=== PATIENT | female | born 1950 | race Caucasian/White ===

== ENCOUNTER 2018-03-25 09:10 | Emergency (ER) | payer MEDICARE, OTHER ==
[~2018-03-25] VITALS: Ht 154.9 cm; Wt 56.7 kg
[~2018-03-25 09:10] MED LIST: CYCLOBENZAPRINE10 MG ORAL; TYLENOL325 MG ORAL
[2018-03-25] MEDS ORDERED: IBUPROFEN600 MG ORAL (10:22)
[2018-03-25] MEDS ORDERED: NORCO 5-325 TA1 EACH ORAL (10:22)
[2018-03-25 10:30] VITALS: BP 126/78
--- NOTE | 2018-03-25 11:08 | Emergency Room Report ---
History of Present Illness General Chief Complaint: Lower Extremity Injury Source: Patient Present Illness HPI Patient had a mechanical fall yesterday. Patient states that she slipped fell forward and hit her wrists and her knee. She's complaining of wrist pain and knee pain. She is able to ambulate with a walker. She denies any chest pain shortness of breath. She was a little concerned because she has history of arthroscopic knee surgery on her right knee. She denies any tingling numbness.No other modifying factors. No other associated signs and symptoms. No other complaints were noted. Allergies: Coded Allergies: PENICILLINS (Unverified Allergy, Unknown, 12/20/15) Uncoded Allergies: PENICILLIN (Allergy, Unknown, 12/20/15) Patient History Past Medical History: other - Prior knee surgery PMH Narrative osteoporosis Pertinent Family History: none Social History: Denies: smoking, alcohol use, drug use Reviewed Nursing Documentation: PMH: Agreed; PSxH: Agreed Review of Systems All Other Systems: negative except mentioned in HPI Physical Exam Vital Signs Date Time Temp Pulse Resp B/P (MAP) Pulse Ox O2 Delivery O2 Flow Rate FiO2 03/25/18 09:19 97.9 62 20 125/66 99 Room Air 97.9 Sp02 EP Interpretation: reviewed, normal General Appearance: normal inspection, well appearing, no apparent distress, alert Head: atraumatic Eyes: bilateral eye normal inspection ENT: normal ENT inspection, hearing grossly normal, normal voice Neck: normal inspection, full range of motion, supple, no bony tend Respiratory: normal inspection, lungs clear, normal breath sounds, no respiratory distress, no retraction, no wheezing Cardiovascular #1: regular rate, rhythm, no edema Gastrointestinal: normal inspection, normal bowel sounds, non tender, soft, no guarding, no hernia Genitourinary: no CVA tenderness Musculoskeletal: normal inspection, back normal, normal range of motion, tender - Bilateral wrists, bilateral knee Neurologic: normal inspection, alert, responsive, speech normal Psychiatric: normal inspection, judgement/insight normal, mood/affect normal Skin: normal inspection, normal color, no rash Medical Decision Making Diagnostic Impression: Primary Impression: Strain of knee, bilateral Additional Impressions: Injury of lower extremity Qualified Codes: S89.91XA - Unspecified injury of right lower leg, initial encounter Strain of wrist, bilateral Wrist strain Qualified Codes: S66.919A - Strain of unspecified muscle, fascia and tendon at wrist and hand level, unspecified hand, initial encounter ER Course Patient presents emergency department today status post fall. Differential considerations include fracture since patient presents strain. Given patient's presentation felt that x-rays are indicated. X-rays were negative of the wrist and knee. I felt the patient to be discharged home. Patient was given prescription for pain medications. Patient is advised to follow up with primary doctor in 2-3 days and return the emergency room for any worsening symptoms and as needed. Other X-Ray Diagnostic Results Other X-Ray Diagnostic Results #1: X-Ray ordered: Right wrist x-ray # of Views/Limited Vs Complete: 3 View Indication: Pain EP Interpretation: Yes Interpretation: no dislocation, no soft tissue swelling, no fractures Impression: No acute disease Electronically Signed by: Electronically signed by Sharita De La Vega MD Other X-Ray Diagnostic Results #2: X-Ray ordered: Left wrist x-ray # of Views/Limited Vs Complete: 3 View Indication: Pain EP Interpretation: Yes Interpretation: no dislocation, no soft tissue swelling, no fractures Impression: No acute disease Electronically Signed by: Electronically signed by Sharita De La Vega MD Other X-Ray Diagnostic Results #3: X-Ray ordered: Left knee x-ray # of Views/Limited Vs Complete: 3 View Indication: Pain EP Interpretation: Yes Interpretation: no dislocation, no soft tissue swelling, no fractures Impression: No acute disease Electronically Signed by: Electronically signed by Sharita De La Vega MD Other X-Ray Diagnostic Results #4: X-Ray ordered: Right knee x-ray # of Views/Limited Vs Complete: 3 View Indication: Pain Interpretation: no dislocation, no soft tissue swelling, no fractures Impression: No acute disease Last Vital Signs Date Time Temp Pulse Resp B/P (MAP) Pulse Ox O2 Delivery O2 Flow Rate FiO2 03/25/18 09:19 97.9 62 20 125/66 99 Room Air 97.9 Status: improved Disposition: HOME, SELF-CARE Condition: Stable Scripts Hydrocodone Bit/Acetaminophen 5-325* (NORCO 5-325*) 1 Each Tablet 1 TAB ORAL Q4H PRN for For Pain, #10 TAB 0 Refills Prov: SHARITA DE LA VEGA M.D. 03/25/18 Ibuprofen* (MOTRIN*) 600 Mg Tablet 600 MG ORAL Q8H PRN for For Pain, #10 TAB 0 Refills Prov: SHARITA DE LA VEGA M.D. 03/25/18 Patient Instructions: Wrist Sprain, Knee Pain, [id number] SHARITA DE LA VEGA M.D. March 25, 2018 11:08
--- NOTE | 2018-03-25 13:36 | Diagnostic Imaging Report ---
Indication: Pain Knee pain/trauma 3 views of the right knee were obtained. Findings: No acute fracture, malalignment, or joint effusion are identified. Joint space is relatively well-maintained. Bones are slightly osteopenic. Impression: Negative for acute findings.
--- NOTE | 2018-03-25 13:40 | Diagnostic Imaging Report ---
Indication: Pain left wrist pain Findings: 3 views of the left wrist were obtained. No acute fractures, malalignment, erosions or periostitis are identified. Soft tissues are unremarkable. Impression: No acute findings.
--- NOTE | 2018-03-25 13:40 | Diagnostic Imaging Report ---
Indication: Pain 3 views of the left knee were obtained. Findings: No acute fracture, malalignment, or joint effusion are identified. Joint space is mildly narrowed in all 3 compartments. Impression: Negative for acute injury. Mild arthrosis
--- NOTE | 2018-03-25 13:41 | Diagnostic Imaging Report ---
Indication: Pain Findings: 3 views of the right wrist were obtained. No acute fractures, malalignment, erosions or periostitis are identified. Soft tissues are unremarkable. Impression: No acute findings.
== END 2018-03-25 11:01 | disposition home or self-care (01) ==
LOC: EMR 09:29
DX: S86.812A Strain of other muscle(s) and tendon(s) at lower leg level, left leg, initial encounter (principal); S86.811A Strain of other muscle(s) and tendon(s) at lower leg level, right leg, initial encounter; S66.912A Strain of unspecified muscle, fascia and tendon at wrist and hand level, left hand, initial encounter; S66.911A Strain of unspecified muscle, fascia and tendon at wrist and hand level, right hand, initial encounter; W01.0XXA Fall on same level from slipping, tripping and stumbling without subsequent striking against object, initial encounter; Y92.9 Unspecified place or not applicable; Z88.0 Allergy status to penicillin
CPT/HCPCS: 99284

== ENCOUNTER 2018-12-14 20:27 | Emergency (ER) | payer MEDICARE ==
[~2018-12-14] VITALS: Ht 149.9 cm; Wt 59.9 kg
[~2018-12-14 20:27] MED LIST changes: +IBUPROFEN600 MG ORAL; +NORCO 5-325 TA1 EACH ORAL
[2018-12-14] MEDS ORDERED: XANAX0.25 MG ORAL (20:47)
[2018-12-14] MEDS ORDERED: ATORVASTATIN CA10 MG ORAL (20:47)
--- NOTE | 2018-12-14 21:00 | NUR ---
ED Nurse Note: pt walked into ED c/o anxiety, med refill for xanax, 0.25 mg bid, pt states she recently suffered from loss of mother, has been dealing with her , states it has been difficult to sleep and eat, heart palpitations and anxious. ERMD at the bedside, pt aA&ox4, gc=15, calm and cooperative, skin warm and dry, resp even and unlabored, -n/v/d, ambulates w/ steady gait, son at the bedside, will cont monitor.
[2018-12-14 21:05] VITALS: BP 150/79
[2018-12-14] MEDS ORDERED: XANAX0.5 MG ORAL (21:09)
--- NOTE | 2018-12-14 21:09 | Emergency Room Report ---
History of Present Illness General Chief Complaint: Medication Refill Source: Patient, Family Member Present Illness HPI Is a 68-year-old female with a history of anxiety. She presents with chief complaint of anxiety. This occur because of illness to her mom. Mom was in the [facility] and recently on November 27. Since then she been on Xanax. She said it helped. She ran out 2 days ago. Her doctor told her to go to the hospital since she can't be seen quickly. She denies any fever or chills. Said she has hard time sleeping. Fell anxious. Fell her heart beating fast and numbness to her body. No nausea no vomiting. No suicidal thoughts or homicidal thought. Allergies: Coded Allergies: PENICILLINS (Unverified Allergy, Unknown, 12/20/15) Uncoded Allergies: PENICILLIN (Allergy, Unknown, 12/20/15) Patient History Past Medical History: see triage record, old chart reviewed Past Surgical History: none Pertinent Family History: none Social History: Denies: smoking Last Menstrual Period: THOM Now: No Immunizations: other Reviewed Nursing Documentation: PMH: Agreed; PSxH: Agreed Review of Systems Eye: Denies: eye pain, blurred vision ENT: Denies: ear pain, nose congestion, throat swelling Respiratory: Denies: cough, shortness of breath Cardiovascular: Denies: chest pain, palpitations Gastrointestinal: Denies: abdominal pain, diarrhea, nausea, vomiting Musculoskeletal: Denies: back pain, joint pain Skin: Denies: rash Psychiatric: Reports: anxiety Neurological: Denies: headache, numbness Endocrine: Denies: increased thirst, increased urine Hematologic/Lymphatic: Denies: easy bruising All Other Systems: negative except mentioned in HPI Physical Exam Vital Signs Date Time Temp Pulse Resp B/P (MAP) Pulse Ox O2 Delivery O2 Flow Rate FiO2 12/14/18 20:43 98.4 71 16 150/79 97 Room Air vitals with high blood pressure Sp02 EP Interpretation: reviewed, normal General Appearance: well appearing, no apparent distress, alert Head: normocephalic, atraumatic Eyes: bilateral eye PERRL, bilateral eye EOMI ENT: hearing grossly normal, normal pharynx Neck: full range of motion, supple, no meningismus Respiratory: chest non-tender, lungs clear, normal breath sounds Cardiovascular #1: regular rate, rhythm, no murmur Gastrointestinal: normal bowel sounds, non tender, no mass, no organomegaly, no bruit, non-distended Musculoskeletal: back normal, gait/station normal, normal range of motion Neurologic: alert, oriented x3 Psychiatric: anxious Skin: warm/dry Medical Decision Making Diagnostic Impression: Primary Impression: Anxiety Additional Impression: Encounter for medication refill ER Course Patient with anxiety. No evidence of suicidal thoughts homicidal thought. No criteria for 5150. We will discharge home. Blood pressures elevated probably secondary to anxiety. Last Vital Signs Date Time Temp Pulse Resp B/P (MAP) Pulse Ox O2 Delivery O2 Flow Rate FiO2 12/14/18 20:43 98.4 71 16 150/79 97 Room Air Status: improved Disposition: HOME, SELF-CARE Condition: Stable Scripts Alprazolam* (XANAX*) 0.5 Mg Tablet 0.25 MG ORAL BID, #20 TAB Prov: Kang Gotti MD 12/14/18 Additional Instructions: Follow-up with your doctor in 7 days. Return if symptom worsen. Kang Gotti MD Dec 14, 2018 21:09
[2018-12-14] MEDS ORDERED: LORazepam 1mg tab ORAL ONE (21:15)
--- NOTE | 2018-12-14 21:18 | NUR ---
ED Nurse Note: pt discharge instruction provided w/ prescription, pt advised to follow up with pcp within 2-3days and given list of mental clinic she can follow up with, pt wristband removed, pt education done, pt verbalized understanding and agrees with plan. pt ambulatory w/ steady gait, vss, resp even and unlabored.
[2018-12-14 21:19] VITALS: BP 150/76
== END 2018-12-14 22:30 | disposition home or self-care (01) ==
LOC: EMR 21:24
DX: Z76.0 Encounter for issue of repeat prescription (principal); F41.9 Anxiety disorder, unspecified; Z88.0 Allergy status to penicillin
CPT/HCPCS: 99282